=== PATIENT | female | born 1965 | race Caucasian/White ===

== ENCOUNTER 2016-12-20 19:22 | Observation (INO) | payer OTHER ==
[~2016-12-20] VITALS: Ht 149.9 cm; Wt 71.5 kg
[2016-12-20] VITALS (8 sets, daily range): BP systolic 102–128; BP diastolic 63–74; PULSE 73–87; RESP 18; TEMP 96.7–98.3; O2SAT 95–100
--- NOTE | 2016-12-20 19:56 | PD ---
HPI Chief Complaint: Chest Pain Time Seen by Provider: 19:56 Travel History International Travel<30 days: No Contact w/Intl Traveler<30days: No Traveled to known affect area: No History of Present Illness HPI 51-year-old female presents to the emergency department by private transportation in the care of her spouse for complaint of retrosternal chest pressure and tightness, 8/10 in intensity, associated with shortness of breath nausea diaphoresis and near syncope along with generalized weakness. Patient states symptoms actually began yesterday and have been persistent with waxing and waning intensity since yesterday. Patient initially thought that she was having indigestion. Patient did not take any of her prescription medications today which include Klonopin buspirone and Adderall. Just prior to arrival to the emergency department she did take aspirin 81 mg. Patient does not report any upper extremity or lower extremity focal numbness tingling or weakness. Patient states some time around 5:30 or 6 she felt very weak and when she got up to go the bathroom she collapsed to the floor. Patient does not report hitting her head. Patient does not know she had brief loss of consciousness. Patient states she did contact her prior to this. states that when he returned home shortly after the phone call he found her on her bed and she was difficult to awaken but he was able to get her to awaken and he assisted her as though he is ambulating and assisting drunk to the car. Patient rarely drinks alcohol and denies any alcohol consumption. Patient reports that she has felt disconnected and not herself since yesterday. Patient has had blurring of vision and difficulty recognizing letters and numbers on her computer since yesterday and especially this afternoon. Patient' s reports that she seemed herself this morning he left for work between 10 AM and 2 PM. The patient states that she was having difficulty the whole time but she just did not feel like sharing it with him. Patient denies personal history of hypertension dyslipidemia or diabetes. Patient does admit to tobacco use. Patient demonstrated rare occasional alcohol use and denies any substance use. No report of recent febrile illness. [facility] Past Medical History Narrative Medical ADHD, anxiety, depression; neck and right breast lumpectomy; occasional alcohol use positive tobacco use no substance use; nursing notes reviewed Social History Alcohol Use: Yes Tobacco Use: Yes Substance Use: Yes Allergies-Medications (Allergen,Severity, Reaction): Coded Allergies: Codeine (Verified Allergy, Severe, Itching, 12/20/16) Reported Meds & Prescriptions Reported Meds & Active Scripts Active Reported Clonazepam 2 Mg Tab 2 Mg PO BID Aspir-81 (Aspirin) 81 Mg Tabdr Adderall (Amphetamine-Dextroamphetamine) 30 Mg Tab 30 Mg PO BID Avoid late evening doses. Space doses at least 4 to 6 hours if more than once/day dosing. Buspirone (Buspirone HCl) 15 Mg Tab 15 Mg PO BID Narrative Medication Adderall buspirone [place] Review of Systems Except as stated in HPI: all other systems reviewed are Neg General / Constitutional: No: Fever Eyes: Positive: Blurred Vision, No: Diploplia, Photophobia HENT: Positive: Vertigo, Lightheadedness, No: Headaches Cardiovascular: Positive: Chest Pain or Discomfort, No: Syncope (near-syncope) Respiratory: Positive: Shortness of Breath, No: Cough Gastrointestinal: Positive: Nausea, No: Abdominal Pain Genitourinary: No: Flank Pain Musculoskeletal: Positive: Weakness (bilateral upper and lower extremity), No : Myalgias, Arthralgias Skin: No Rash Neurologic: Positive: Weakness, Dizziness, No: Syncope (near), Focal Abnormalities, Coordination Problem, Headache, Change in Mentation, Slurred Speech, Paresthesia, Incontinence, Sensory Disturbance Psychiatric: Positive: Anxiety, Depression, No: Suicidal Ideations Endocrine: No: Heat Intolerance Hematologic/Lymphatic: No: Easy Bruising Physical Exam Narrative GENERAL: Well-developed well-nourished female in no respiratory distress; GCS 15 ; intermittently tearful SKIN: Warm and dry. HEAD: Atraumatic. Normocephalic. EYES: Pupils equal and round. Extraocular muscles intact. No scleral icterus. No injection or drainage. ENT: No nasal bleeding or discharge. Mucous membranes pink and moist. Edentulous. Airway is patent. NECK: Trachea midline. No JVD. CARDIOVASCULAR: Regular rate and rhythm. RESPIRATORY: No accessory muscle use. Clear to auscultation. Breath sounds equal bilaterally. GASTROINTESTINAL: Abdomen soft, non-tender, nondistended. Hepatic and splenic margins not palpable. MUSCULOSKELETAL: Extremities without clubbing, cyanosis, or edema. No obvious deformities. NEUROLOGICAL: Awake and alert. No obvious cranial nerve deficits except mild right facial asymmetry/drooping which states is her normal and shows me a picture appears to be similar. Motor grossly within normal limits. Five out of 5 muscle strength in the arms and legs. No limb ataxia. No pronator drift. DTRs 2+ and equal bilaterally without clonus. Sensory exam intact. Normal speech. PSYCHIATRIC: Appropriate mood and affect; insight and judgment normal. Data Data Last Documented VS Vital Signs Date Time Temp Pulse Resp B/P Pulse Ox O2 Delivery O2 Flow Rate FiO2 12/20/16 20:45 77 102/64 98 12/20/16 20:13 Room Air 12/20/16 19:26 98.3 18 Orders Electrocardiogram (12/20/16 19:49) Prothrombin Time / Inr (Pt) (12/20/16 19:49) Act Partial Throm Time (Ptt) (12/20/16 19:49) Complete Blood Count With Diff (12/20/16 19:49) Comprehensive Metabolic Panel (12/20/16 19:49) Creatine Kinase (Cpk) (12/20/16 19:49) Drug Screen, Random Urine (12/20/16 19:49) Troponin I (12/20/16 19:49) Urinalysis - C+S If Indicated (12/20/16 19:49) Ct Brain W/O Iv Contrast(Rout) (12/20/16 19:49) Chest, Single Ap (12/20/16 19:49) Ecg Monitoring (12/20/16 19:49) Iv Access Insert/Monitor (12/20/16 19:49) Oximetry (12/20/16 19:49) Ondansetron Inj (Zofran Inj) (12/20/16 20:00) Sodium Chloride 0.9% Flush (Ns Flush) (12/20/16 20:00) Sodium Chlorid 0.9% 500 Ml Inj (Ns 500 M (12/20/16 20:00) Sodium Chlor 0.9% 1000 Ml Inj (Ns 1000 M (12/20/16 20:00) Blood Glucose (12/20/16 19:56) Urine Culture (12/20/16 20:00) Thyroid Stimulating Hormone (12/20/16 19:40) Sodium Chlorid 0.9% 500 Ml Inj (Ns 500 M (12/20/16 20:45) Ceftriaxone Inj (Rocephin Inj) (12/20/16 21:15) Blood Culture (12/20/16 21:22) Admit Order (Ed Use Only) (12/20/16 ) ^ Saline Lock (12/20/16 21:36) Resp Oxygen Jeremy C Titrat 1-4 L (12/20/16 ) ^ Notify Dr: Other (12/20/16 21:36) Sodium Chloride 0.9% Flush (Ns Flush) (12/21/16 09:00) Sodium Chloride 0.9% Flush (Ns Flush) (12/20/16 21:45) Ceftriaxone Inj (Rocephin Inj) (12/21/16 21:00) Place In Observation (12/20/16 ) Vital Signs (Adult) Q4H (12/20/16 21:39) Activity Oob With Assistance (12/20/16 21:39) Loom Control Chain Builder / Telemetry .CONTINUOUS (12/20/16 21:39) Diet Regular Basic (12/21/16 Breakfast) Sodium Chlor 0.9% 1000 Ml Inj (Ns 1000 M (12/20/16 21:39) Sodium Chloride 0.9% Flush (Ns Flush) (12/20/16 21:45) Sodium Chloride 0.9% Flush (Ns Flush) (12/21/16 09:00) Ondansetron Inj (Zofran Inj) (12/20/16 21:45) Bisacodyl Supp (Dulcolax Supp) (12/20/16 21:45) Comprehensive Metabolic Panel (12/21/16 06:00) Complete Blood Count With Diff (12/21/16 06:00) Troponin I (12/21/16 00:00) Troponin I (12/21/16 06:00) Scd Bilateral/Knee High BOAZ.BID (12/20/16 21:39) Teo Bilateral/Knee High BOAZ.QSHIFT (12/20/16 21:39) Acetaminophen (Tylenol) (12/20/16 21:45) Morphine Inj (Morphine Inj) (12/20/16 21:45) Labs Laboratory Tests Test 12/20/16 12/20/16 19:40 20:00 White Blood Count 8.6 TH/MM3 Red Blood Count 4.65 MIL/MM3 Hemoglobin 14.4 GM/DL Hematocrit 43.5 % Mean Corpuscular Volume 93.4 FL Mean Corpuscular Hemoglobin 31.0 PG Mean Corpuscular Hemoglobin 33.2 % Concent Red Cell Distribution Width 13.0 % Platelet Count 293 TH/MM3 Mean Platelet Volume 9.5 FL Neutrophils (%) (Auto) 56.8 % Lymphocytes (%) (Auto) 34.1 % Monocytes (%) (Auto) 6.4 % Eosinophils (%) (Auto) 2.0 % Basophils (%) (Auto) 0.7 % Neutrophils # (Auto) 4.8 TH/MM3 Lymphocytes # (Auto) 2.9 TH/MM3 Monocytes # (Auto) 0.6 TH/MM3 Eosinophils # (Auto) 0.2 TH/MM3 Basophils # (Auto) 0.1 TH/MM3 CBC Comment DIFF FINAL Differential Comment Prothrombin Time 10.9 SEC Prothromb Time International 1.0 RATIO Ratio Activated Partial 26.5 SEC Thromboplast Time Sodium Level 142 MEQ/L Potassium Level 3.9 MEQ/L Chloride Level 110 MEQ/L Carbon Dioxide Level 23.8 MEQ/L Anion Gap 8 MEQ/L Blood Urea Nitrogen 17 MG/DL Creatinine 0.81 MG/DL Estimat Glomerular Filtration 74 ML/MIN Rate Random Glucose 104 MG/DL Calcium Level 8.9 MG/DL Total Bilirubin 0.4 MG/DL Aspartate Amino Transf 19 U/L (AST/SGOT) Alanine Aminotransferase 27 U/L (ALT/SGPT) Alkaline Phosphatase 77 U/L Total Creatine Kinase 111 U/L Troponin I LESS THAN 0.02 NG/ML Total Protein 7.6 GM/DL Albumin 3.9 GM/DL Thyroid Stimulating Hormone 2.880 uIU/ML 3rd Gen Urine Color YELLOW Urine Turbidity SLIGHT Urine pH 5.5 Urine Specific Miller 1.021 Urine Protein NEG mg/dL Urine Glucose (UA) NEG mg/dL Urine Ketones NEG mg/dL Urine Occult Blood NEG Urine Nitrite NEG Urine Bilirubin NEG Urine Leukocyte Esterase SMALL Urine WBC 3-5 /hpf Urine Squamous Epithelial > 8 /hpf Cells Urine Amorphous Sediment MOD Urine Bacteria MOD /hpf Urine Mucus MOD /lpf Microscopic Urinalysis Comment CULTURE INDICATED Urine Opiates Screen NEG Urine Barbiturates Screen NEG Urine Amphetamines Screen POS Urine Benzodiazepines Screen POS Urine Cocaine Screen NEG Urine Cannabinoids Screen POS MDM Medical Decision Making Medical Screen Exam Complete: Yes Emergency Medical Condition: Yes Medical Record Reviewed: Yes Interpretation(s) TSH: 2.880 Troponin I: Less than 0.02, not elevated; CK: 111, not elevated Urine drug screen positive for amphetamines benzodiazepines and cannabinoids Urinalysis positive for moderate bacteria, moderate mucus, leukocyte Estrace; culture indicated Last Impressions Head CT 12/20/161948 Signed Impressions: Service Date/Time: Tuesday, December 20, 2016 20:07 - CONCLUSION: Normal examination for a patient of this age. Jose C Hou MD Chest X-Ray 12/20/161948 Signed Impressions: Service Date/Time: Tuesday, December 20, 2016 19:57 - CONCLUSION: No acute disease. Jose C Hou MD CBC & BMP Diagram 12/20/16 19:40 Vital Signs Date Time Temp Pulse Resp B/P Pulse Ox O2 Delivery O2 Flow Rate FiO2 12/20/16 20:45 77 102/64 98 12/20/16 20:13 Room Air 12/20/16 19:48 77 103/74 100 12/20/16 19:47 115/74 12/20/16 19:40 Room Air 12/20/16 19:37 84 128/64 12/20/16 19:26 98.3 87 18 95 Differential Diagnosis Chest pain, ACS, myocardial infarction, dissection, arrhythmia, TIA, CVA, metabolic disturbance, sepsis, thyroid dysfunction, possible poly-ingestion overdose Narrative Course Patient placed on monitoring and evaluation advisor IV access obtained room air O2 saturation 95% ; initial blood pressure 128/64 on repeat 103/74; placed supine; EKG performed shows normal sinus rhythm no acute ST elevation injury pattern or ectopy; patient sent for CT brain noncontrast. Patient with greater than 24 hours of symptoms with ongoing chest pain shortness of breath near syncopal episode today along with generalized weakness with visual disturbance that has been present with inability to adequately use her computer since yesterday and specifically since 4pm or so today and "had to hold onto [objects/]counter to support herself with walking" since this morning as well; presentation is concerning for TIA/CVA with possible NIHSS: 2; however, onset and clarification of onset of symptoms is not certain and difficult to ascertain based on patient' s history and 's history including appearance of right sided facial drooping which he notes as her normal and then is uncertain but shows a picture with right sided facial asymmetry; patient reports "I don't look in mirrors". Patient will be sent for imaging study at this time does not seem to be a candidate for thrombolytic therapy. Symptoms have been present for greater than 3 hours possibly greater than 4 and base on 's history since she did not want to share her symptoms with her spouse perhaps greater than 6-12 hours. @ 20:28 NIHSS:0; ID facial features consistent with facial features today. Patient reports "I feel much better". Chest pain has decreased to 1-2/ 10. Patient identified to have abnormal urinalysis; patient reporting intermittent feeling flushed and cold but no temperature check with thermometer; we'll obtain blood culture and administer Rocephin 1 g IV piggyback for UTI. Patient informed of urinalysis result and now reports frequent urination. CT brain noncontrast reveals no acute abnormalities per reading radiologist, Dr. Hou. Patient given additional aspirin in view of complaint of chest pain also for possibility of TIA 162 mg by mouth administered. After IV fluid bolus patient remains low-normal to hypotensive systolic pressure 102 mmHg and does not describe discomfort as tight pressure anymore and therefore we'll hold off on administering nitroglycerin. Patient is aware of plan to admit to observation. Physician Communication Physician Communication call placed to [facility] for observation discussed with Dr Eduardo Diagnosis Primary Impression: Generalized weakness Additional Impressions: Chest pain UTI (urinary tract infection) Admitting Information Admitting Physician Requests: Observation Cynthia Lindo MD Dec 20, 2016 19:56
[2016-12-20] MEDS ORDERED: SODIUM CHLORIDE 0.9% FLUSH 10 ML FLUSH IVF PRN ×2 (20:00→21:45)
[2016-12-20] MEDS ORDERED: SODIUM CHLOR 0.9% 1000 ML INJ 1,000 ML IV SCH (20:00)
[2016-12-20] MEDS ORDERED: SODIUM CHLORID 0.9% 500 ML INJ 500 ML IV ONE ×2 (20:00→20:45)
[2016-12-20] MEDS ORDERED: ONDANSETRON HCL 4 MG/2 ML VIAL IVP ONE (20:00)
[2016-12-20 20:09] LABS: AUTOMATED NEUTROPHIL # 4.8 TH/MM3 (1.8-7.7); BASOPHIL # 0.1 TH/MM3 (0-0.2); BASOPHIL % 0.7 % (0.0-2.0); EOSINOPHIL # 0.2 TH/MM3 (0-0.4); HEMATOCRIT 43.5 % (35.0-46.0); HEMO FLAGS DIFF FINAL; LYMPH % 34.1 % (9.0-44.0); LYMPHOCYTE # 2.9 TH/MM3 (1.0-4.8); MEAN CELL VOLUME 93.4 FL (80.0-100.0); MEAN CORPUSCULAR HGB CONC 33.2 % (32.0-36.0); MONO % 6.4 % (0.0-8.0); NEUT % 56.8 % (16.0-70.0); PLATELET COUNT 293 TH/MM3 (150-450); RED BLOOD COUNT 4.65 MIL/MM3 (4.00-5.30); WHITE BLOOD COUNT 8.6 TH/MM3 (4.0-11.0)
[2016-12-20 20:10] LABS: BLOOD, URINE NEG (NEG); GLUCOSE,URINE NEG (NEG); KETONE, URINE NEG (NEG); NITRITE,URINE NEG (NEG); PH, URINE 5.5 (5.0-8.5)
[2016-12-20] MEDS ORDERED: ADDE30TA PO (20:12)
[2016-12-20] MEDS ORDERED: CLON2TAB PO (20:12)
[2016-12-20] MEDS ORDERED: ASPI81TA81 (20:12)
[2016-12-20] MEDS ORDERED: BUSP15TA PO (20:12)
[2016-12-20 20:16] LABS: CHLORIDE 110 MEQ/L (98-107); POTASSIUM 3.9 MEQ/L (3.5-5.1); SODIUM (NA) 142 MEQ/L (136-145)
[2016-12-20 20:18] LABS: URINE COLOR YELLOW (YELLW/STRAW)
[2016-12-20 20:19] LABS: BACTERIA, URINE MOD /hpf; MUCUS URINE MOD /lpf (OCC); SQUAMOUS EPITHELIAL CELL URINE > 8 /hpf (0-5)
[2016-12-20 20:20] LABS: COMMENT (UR) CULTURE INDICATED; CULTURE IF INDICATED CULTURE INDICATED
[2016-12-20 20:20] LABS: ANION GAP 8 MEQ/L (5-15); BICARBONATE 23.8 MEQ/L (21.0-32.0); BLOOD UREA NITROGEN 17 MG/DL (7-18)
[2016-12-20 20:21] LABS: APTT (PATIENT) 26.5 SEC (24.3-30.1); PROTHROMBIN TIME - PATIENT 10.9 SEC (9.8-11.6)
[2016-12-20 20:23] LABS: ALT (GPT) 27 U/L (10-53); AST (GOT) 19 U/L (15-37); GLOMERULAR FILTRATION RATE 74 ML/MIN (>89)
[2016-12-20 20:24] LABS: TOTAL BILIRUBIN ADULT 0.4 MG/DL (0.2-1.0)
[2016-12-20 20:25] LABS: ALKALINE PHOSPHATASE 77 U/L (45-117); CREATINE KINASE 111 U/L (26-192)
[2016-12-20 20:26] LABS: AMPHETAMINE, URINE POS (NEG); BARBITURATES, URINE NEG (NEG)
[2016-12-20 20:27] LABS: COCAINE, URINE NEG (NEG)
--- NOTE | 2016-12-20 20:33 | RADHPO ---
EXAM DATE/TIME: 12/20/2016 20:07 [facility] COMPARISON: No previous studies available for comparison. INDICATIONS : Near syncopal episode with generalized weakness. RADIATION DOSE: 58.74 CTDIvol (mGy) MEDICAL HISTORY : Carcinoma, breast. SURGICAL HISTORY : None. ENCOUNTER: Initial ACUITY: 1 day PAIN SCALE: 0/10 LOCATION: cranial TECHNIQUE: Multiple contiguous axial images were obtained of the head. Using automated exposure control and adj ustment of the mA and/or kV according to patient size, radiation dose was kept as low as reasonably a chievable to obtain optimal diagnostic quality images. FINDINGS: CEREBRUM: The ventricles are normal for age. No evidence of midline shift, mass lesion, hemorrhage or acute in farction. No extra-axial fluid collections are seen. POSTERIOR FOSSA: The cerebellum and brainstem are intact. The 4th ventricle is midline. The cerebellopontine angle i s unremarkable. EXTRACRANIAL: The visualized portion of the orbits is intact. SKULL: The calvaria is intact. No evidence of skull fracture. CONCLUSION: Normal examination for a patient of this age. Jose C Hou MD on December 20, 2016 at 20:30 Board Certified Radiologist. This report was verified electronically.
--- NOTE | 2016-12-20 20:37 | RADHPO ---
EXAM DATE/TIME: 12/20/2016 19:57 [facility] COMPARISON: No previous studies available for comparison. INDICATIONS : Chest pain. MEDICAL HISTORY : None. SURGICAL HISTORY : None. ENCOUNTER: Initial ACUITY: 1 day PAIN SCORE: 5/10 LOCATION: Bilateral chest FINDINGS: A single view of the chest demonstrates the lungs to be symmetrically aerated without evidence of mas s, infiltrate or effusion. The cardiomediastinal contours are unremarkable. Osseous structures are intact. CONCLUSION: No acute disease. Jose C Hou MD on December 20, 2016 at 20:35 Board Certified Radiologist. This report was verified electronically.
[2016-12-20] MEDS ORDERED: cefTRIAXone INJ 1,000 MG in SODIUM CHLORIDE 0.9% INJ 100 ML IV ONE (21:15)
[2016-12-20] MEDS ORDERED: BISACODYL 10 MG SUPP PR PRN (21:45)
[2016-12-20] MEDS ORDERED: SODIUM CHLORIDE 0.9% FLUSH 10 ML FLUSH IV FLUSH PRN (21:45)
[2016-12-20] MEDS ORDERED: ACETAMINOPHEN 325 MG TAB PO PRN (21:45)
[2016-12-20] MEDS ORDERED: MORPHINE SULFATE 4 MG/ML INJ IV PRN (21:45)
[2016-12-20] MEDS ORDERED: ONDANSETRON HCL 4 MG/2 ML VIAL IVP PRN (21:45)
[2016-12-20] MEDS: SODIUM CHLOR 0.9% 1000 ML INJ 1,000 ML IV SCH (22:21)
[2016-12-21] VITALS: BP 111/74; PULSE 70; RESP 18; TEMP 97.1; O2SAT 98
[2016-12-21 04:00] VITALS: BP 89/61; PULSE 75; RESP 18; TEMP 97.6; O2SAT 96
[2016-12-21] MEDS: SODIUM CHLOR 0.9% 1000 ML INJ 1,000 ML IV SCH (05:41)
[2016-12-21 06:32] LABS: AUTOMATED NEUTROPHIL # 3.2 TH/MM3 (1.8-7.7); BASOPHIL % 0.6 % (0.0-2.0); EOSINOPHIL # 0.2 TH/MM3 (0-0.4); EOSINOPHIL % 3.2 % (0.0-4.0); HEMATOCRIT 36.7 % (35.0-46.0); HEMO FLAGS DIFF FINAL; LYMPH % 40.7 % (9.0-44.0); LYMPHOCYTE # 2.6 TH/MM3 (1.0-4.8); MEAN CELL VOLUME 94.4 FL (80.0-100.0); MEAN CORPUSCULAR HEMOGLOBIN 30.3 PG (27.0-34.0); MONO % 8.3 % (0.0-8.0); NEUT % 47.2 % (16.0-70.0); PLATELET COUNT 239 TH/MM3 (150-450); RED BLOOD COUNT 3.89 MIL/MM3 (4.00-5.30); RED CELL DISTRIBUTION WIDTH 12.2 % (11.6-17.2); WHITE BLOOD COUNT 6.5 TH/MM3 (4.0-11.0)
[2016-12-21 06:34] LABS: CHLORIDE 113 MEQ/L (98-107); POTASSIUM 3.6 MEQ/L (3.5-5.1); SODIUM (NA) 145 MEQ/L (136-145)
[2016-12-21 07:02] LABS: ALKALINE PHOSPHATASE 62 U/L (45-117); ALT (GPT) 21 U/L (10-53); ANION GAP 7 MEQ/L (5-15); AST (GOT) 17 U/L (15-37); BICARBONATE 24.9 MEQ/L (21.0-32.0); BLOOD UREA NITROGEN 18 MG/DL (7-18); GLOMERULAR FILTRATION RATE 80 ML/MIN (>89); TOTAL BILIRUBIN ADULT 0.3 MG/DL (0.2-1.0)
[2016-12-21 08:00] VITALS: BP 95/83; PULSE 74; RESP 16; TEMP 97.1; O2SAT 96
[2016-12-21 08:20] VITALS: O2SAT 96
[2016-12-21] MEDS ORDERED: SODIUM CHLORIDE 0.9% FLUSH 10 ML FLUSH IV FLUSH SCH ×2 (09:00)
--- NOTE | 2016-12-21 17:25 | EKG ---
Date Performed: 12/20/2016 Time Performed: 19:32:16 PTAGE: 51 years EKG: Sinus rhythm . Poor R wave progression - probable normal variant Nonspecific ST-T wave changes in the anterior pre cordium. Clinical corrolation is suggested. Borderline ECG NO PREVIOUS TRACING DOCTOR: Francisco Bright Interpretating Date/Time 12/21/2016 17:23:54
[2016-12-21] MEDS ORDERED: cefTRIAXone INJ 1,000 MG in SODIUM CHLORIDE 0.9% INJ 100 ML IV SCH (21:00)
[2016-12-24] MEDS ORDERED: AZIT250T3 PO (13:45)
[2017-03-08] MEDS ORDERED: BUSP15TA PO (10:40)
[2017-03-08] MEDS ORDERED: TEMA15CA PO (10:41)
== END 2016-12-21 08:45 | disposition left against medical advice (07) ==
LOC: PHED 19:22 → PHEDA 21:38 → PH3B 22:26
PROVIDERS: ADMIT Family Medicine; ATTEND Family Medicine
DX: R53.1 Weakness (principal); R07.9 Chest pain, unspecified; N39.0 Urinary tract infection, site not specified; F90.9 Attention-deficit hyperactivity disorder, unspecified type; F32.9 Major depressive disorder, single episode, unspecified; F41.9 Anxiety disorder, unspecified; F17.200 Nicotine dependence, unspecified, uncomplicated; Z88.5 Allergy status to narcotic agent; Z79.82 Long term (current) use of aspirin; Z85.3 Personal history of malignant neoplasm of breast
CPT/HCPCS: 70450; 71010; 80053; 80307; 81001; 82550; 84443; 84484; 85025; 85610; 85730; 87040; 87086; 93005; 96361; 96374; 96375; 99285; G0378; J0696; J2405; J7030; J7040